=== PATIENT | male | born 1975 | race Two or more races ===

== ENCOUNTER 2023-03-15 09:51 | Inpatient (IN) | payer SELFPAY ==
[~2023-03-15] VITALS: Ht 160 cm; Wt 75.0 kg
[2023-03-15 10:07] LABS: INR 1.5 (0.9-1.15)
[2023-03-15] MEDS ORDERED: ENOXAPARIN SOD 100 MG/1 ML SYRINGE SC SCH (12:00)
[2023-03-16] MEDS ORDERED: ASPirin 325 MG TAB PO SCH (10:00)
[2023-03-16] MEDS ORDERED: INDOMETHACIN 25 MG CAP PO SCH (10:00)
[2023-03-16] MEDS ORDERED: LISINOPRIL 10 MG TAB PO SCH (10:00)
[2023-03-16] MEDS ORDERED: ENALAPRIL MALEATE 10 MG TAB PO SCH (10:00)
== END 2023-03-15 12:49 | disposition home or self-care (01) | DRG 103 ==
LOC: EAST 09:51
PROVIDERS: ADMIT Internal Medicine Geriatric Medicine; ATTEND Internal Medicine Geriatric Medicine
DX: G43.909 Migraine, unspecified, not intractable, without status migrainosus (principal)
CPT/HCPCS: 36415; 82565; 85049; 85610; G0378